=== PATIENT | female | born 1980 | race Caucasian/White ===

== ENCOUNTER 2018-06-17 16:00 | Outpatient (RCR) | payer BC, OTHER ==
[~2018-06-17 16:00] MED LIST: FAM-PREN FORTE1 CAP PO; MOTRIN 600600 MG/TAB PO; PERCOCET 325 MG1 TA2 PO; PROTONIX20 MG PO; ZOFRAN 4MG T4 MG/TAB PO
[2018-07-30] MEDS ORDERED: MUCINEX 60600 MG/TA1 PO (13:43)
[2018-07-30] MEDS ORDERED: ZOLOFT 50MG50 MG PO (13:44)
[2018-07-30] MEDS ORDERED: ZYRTEC 10MG10 MG PO (13:46)
== END 2018-07-29 15:39 | disposition home or self-care (01) ==
LOC: MKS.ESL.PT 16:00
DX: O99.89 Other specified diseases and conditions complicating pregnancy, childbirth and the puerperium (principal); R10.2 Pelvic and perineal pain; M62.81 Muscle weakness (generalized); Z3A.32 32 weeks gestation of pregnancy

== ENCOUNTER 2018-07-30 06:36 | Inpatient (IN) | payer OTHER ==
[~2018-07-30] VITALS: Ht 170.3 cm; Wt 102.7 kg
[2018-07-30] VITALS (18 sets, daily range): BP systolic 115–136; BP diastolic 54–83; PULSE 72–88; TEMP 98.5–98.7
[2018-07-30 12:46] LABS: BASO % 0.3 % (0.0-2.0); EOS # 0.1 (0.0-0.7); EOS % 0.6 % (0-4.0); GRAN # 9.4 (1.4-6.5); GRAN % 73.6 % (42.2-75.2); HEMOGLOBIN 11.4 g/dl (12.5-16.0); LYMPH # 2.2 (1.2-3.4); MEAN CELL VOLUME 86 fl (80.0-100.0); MEAN CORPUSCULAR HEMOGLOBIN 30 pg (27.0-31.0); MEAN CORPUSCULAR HGB CONC 35 g/dl (33.0-37.0); MONO # 0.9 (0.1-0.6); MONO % 7.4 % (1.7-9.3); PLATELET COUNT 259 K/mm3 (130-400); RED BLOOD COUNT 3.82 M/mm3 (4.10-5.30)
[2018-07-30] MEDS ORDERED: MUCINEX 60600 MG/TA1 PO (13:43)
[2018-07-30] MEDS ORDERED: ZOLOFT 50MG50 MG PO (13:44)
[2018-07-30] MEDS ORDERED: ZYRTEC 10MG10 MG PO (13:46)
[2018-07-31 00:18] VITALS: BP 129/75; PULSE 83; TEMP 98.6
[2018-07-31 08:30] VITALS: BP 128/76; PULSE 80; TEMP 98.5
[2018-07-31 16:39] VITALS: BP 123/69; PULSE 85; TEMP 98.1
[2018-07-31 22:00] VITALS: BP 112/74; PULSE 83; TEMP 98.7
[2018-08-01 09:00] VITALS: BP 113/77; PULSE 89; TEMP 98.2
[2018-08-01] MEDS ORDERED: PERCOCET 325 MG1 TA2 PO (09:59)
[2018-08-01] MEDS ORDERED: MOTRIN 800800 MG/TAB PO (09:59)
== END 2018-08-01 12:05 | disposition home or self-care (01) | DRG 765 ==
LOC: OB 06:36
PROVIDERS: Student in an Organized Health Care Education/Training Program
PROC: 10D00Z1 Extraction of Products of Conception, Low, Open Approach (ICD-10-PCS; principal; 2018-07-30)
PROC: 0UT70ZZ Resection of Bilateral Fallopian Tubes, Open Approach (ICD-10-PCS; 2018-07-30)
DX: O34.211 Maternal care for low transverse scar from previous cesarean delivery (principal); O75.3 Other infection during labor; O36.0930 Maternal care for other rhesus isoimmunization, third trimester, not applicable or unspecified; Z3A.39 39 weeks gestation of pregnancy; Z37.0 Single live birth; N30.10 Interstitial cystitis (chronic) without hematuria; Z40.03 Encounter for prophylactic removal of fallopian tube(s)
CPT/HCPCS: J0690; J1885; J2175; J2405; J2590; J3010; J7120

== ENCOUNTER → 2021-07-02 | Outpatient (CLI) | payer OTHER ==
[~2021-07-02] MED LIST changes: +MOTRIN 800800 MG/TAB PO; +MUCINEX 60600 MG/TA1 PO; +ZOLOFT 50MG50 MG PO; +ZYRTEC 10MG10 MG PO
== END ==
LOC: MC.RAD 13:15
DX: Z12.31 Encounter for screening mammogram for malignant neoplasm of breast (principal)

== ENCOUNTER → 2022-09-10 | Outpatient (CLI) | payer OTHER | LOC: MC.RAD 09:30 | DX: Z12.31 Encounter for screening mammogram for malignant neoplasm of breast (principal) ==